=== PATIENT | female | born 1965 | race Hispanic/Latino ===

== ENCOUNTER → 2020-05-31 | Outpatient (CLI) | payer BC ==
[~2020-05-31] MED LIST: ATENOLOL50 MG PO; MULTIVITAMINS1 EAC7 PO; NAPROXEN250 MG PO
== END ==
LOC: MRI 12:45
PROVIDERS: ATTEND Specialist
DX: M54.5 Low back pain (principal); Z78.0 Asymptomatic menopausal state
CPT/HCPCS: 72148; 77080